=== PATIENT | male | born 1990 ===

== ENCOUNTER 2019-12-02 19:50 | Emergency (ER) | payer BC ==
[2019-12-02] MEDS ORDERED: Sodium Chloride 0.9% 1,000 ML IV ONE (20:15)
[2019-12-02] MEDS ORDERED: Meclizine 25 MG Tab PO ONE (20:31)
[2019-12-02] MEDS ORDERED: Ondansetron 4 MG/2 ML SDV IVPUSH ONE (20:31)
--- NOTE | 2019-12-02 20:35 | EDM.PDOC ---
ED HPI GENERAL MEDICAL PROBLEM - General Chief Complaint: General Stated Complaint: DIZZNESS Time Seen by Provider: 12/02/19 20:15 Source of Information: Reports: Patient History Limitations: Reports: No Limitations - History of Present Illness INITIAL COMMENTS - FREE TEXT/NARRATIVE: HISTORY AND PHYSICAL: History of present illness: Patient is a 29-year-old male who presents to the ED today with concern of dizziness for the last 4-hours. Patient states that he was sleeping and he works night shifts and had just woke up from sleeping. Patient states when he woke up he felt like his head was "airy". Patient states initially he had some nausea with the dizziness but this has subsided. Patient states that he still continues to feel slightly dizzy but it has improved over the past 4 hours. Patient denies any head injury or trauma. Patient states his father did from a heart attack at 52 years old and on his father's side he does have a history of heart attacks. Patient denies fever, chills, chest pain, shortness of breath, or cough. Denies headache, neck stiff ness, change in vision, syncope, or near syncope. Denies nausea, vomiting, abdominal pain, diarrhea, constipation, or dysuria. Has not noted any blood in urine or stool. Patient has been eating and drinking appropriately. Review of systems: As per history of present illness and below otherwise all systems reviewed and negative. Past medical history: As per history of present illness and as reviewed below otherwise noncontributory. Surgical history: As per history of present illness and as reviewed below otherwise noncontributory. Social history: See social history for further information Family history: As per history of present illness and as reviewed below otherwise noncontributory. Physical exam: General: Patient is alert, oriented, and in no acute distress. Patient sitting comfortably on exam table. HEENT: Atraumatic, normocephalic, pupils equal and reactive bilaterally, negative for conjunctival pallor or scleral icterus, mucous membranes moist, TMs normal bilaterally, throat clear, neck supple, nontender, trachea midline. No drooling or trismus noted. No meningeal signs. No hot potato voice noted. Lungs: Clear to auscultation, breath sounds equal bilaterally, chest nontender. Heart: S1S2, regular rate and rhythm without overt murmur Abdomen: Soft, nondistended, nontender. Negative for masses or hepatosplenomegaly. Negative for costovertebral tenderness. Pelvis: Stable nontender. Genitourinary: Deferred. Rectal: Deferred. Skin: Intact, warm, dry. No lesions or rashes noted. Extremities: Atraumatic, negative for cords or calf pain. Neurovascular unremarkable. Neuro: Awake, alert, oriented. Cranial nerves II through XII unremarkable. Cerebellum unremarkable. Motor and sensory unremarkable throughout. Exam nonfocal. Notes: EKG reviewed with Dr. Gonzalez and Dr. Gonzalez verbally involved in patient care. HEART Score 1. Low risk Patient expresses resolution of symptoms today in the ED. Discussed importance for follow-up with a primary care provider. Patient placed on expedited follow up with primary care for repeat labwork. Voices understanding and is agreeable to plan of care. Denies any further questions or concerns at this time. Diagnostics: CBC, CMP, UA, EKG, CXR, Trop, Head CT, lipase, orthostatic vitals, magnesium Therapeutics: NS, Zofran, Meclizine Prescription: Meclizine Impression: Dizziness, improved Hypokalemia Plan: 1. Take medication as prescribed. Repeat labwork with primary care provider as discussed. Return to ED as needed and as discussed. 2. Follow-up with a primary care provider as discussed. Definitive disposition and diagnosis as appropriate pending reevaluation and review of above. Generalized Pain Score (Numeric/FACES): 4 - Related Data Allergies Allergy/AdvReac Type Severity Reaction Status Date / Time No Known Allergies Allergy Verified 12/02/19 20:11 Home Meds: Home Meds Meclizine [Antivert] 25 mg PO BID PRN #10 tab 12/02/19 [Rx] Past Medical History - Past Health History Medical/Surgical History: Denies Medical/Surgical History - Infectious Disease History Infectious Disease History: Reports: None Social & Family History - Family History Family Medical History: Noncontributory - Tobacco Use Smoking Status *Q: Current Every Day Smoker Years of Tobacco use: 8 Packs/Tins Daily: 0.5 - Caffeine Use Caffeine Use: Reports: None - Recreational Drug Use Recreational Drug Use: No ED ROS GENERAL - Review of Systems Review Of Systems: Comprehensive ROS is negative, except as noted in HPI. ED EXAM, GENERAL - Physical Exam Exam: See Below (see dictation) Course - Vital Signs Last Recorded V/S: Last Vital Signs Temp 97.6 F 12/02/19 20:11 Pulse 84 12/02/19 20:11 Resp 17 12/02/19 20:11 BP 139/76 12/02/19 20:11 Pulse Ox 99 12/02/19 20:11 - Orders/Labs/Meds Orders: Active Orders 24 hr Category Date Time Status Communication Order [RC] STAT Care 12/02/19 21:33 Ordered EKG Documentation Completion [RC] STAT Care 12/02/19 20:08 Active Orthostatic Vital Signs [RC] ASDIRECTED Care 12/02/19 20:16 Active MAGNESIUM [CHEM] Stat Lab 12/02/19 21:28 Ordered UA RFX JOSÉ MIGUEL AND CULT IF INDIC [URIN] Stat Lab 12/02/19 20:15 Ordered Labs: Laboratory Tests 12/02/19 12/02/19 Range/Units 20:25 20:25 WBC 9.82 (4.0-11.0) K/uL RBC 4.58 (4.50-5.90) M/uL Hgb 13.8 (13.0-17.0) g/dL Hct 40.4 (38.0-50.0) % MCV 88.2 (80.0-98.0) fL MCH 30.1 (27.0-32.0) pg MCHC 34.2 (31.0-37.0) g/dL RDW Std Deviation 43.1 (28.0-62.0) fl RDW Coeff of Grant 13 (11.0-15.0) % Plt Count 322 (150-400) K/uL MPV 9.60 (7.40-12.00) fL Neut % (Auto) 62.5 (48.0-80.0) % Lymph % (Auto) 24.9 (16.0-40.0) % [place] % (Auto) 8.4 (0.0-15.0) % Eos % (Auto) 3.8 (0.0-7.0) % Baso % (Auto) 0.4 (0.0-1.5) % Neut # (Auto) 6.1 H (1.4-5.7) K/uL Lymph # (Auto) 2.5 H (0.6-2.4) K/uL Ulster # (Auto) 0.8 (0.0-0.8) K/uL Eos # (Auto) 0.4 (0.0-0.7) K/uL Baso # (Auto) 0.0 (0.0-0.1) K/uL Nucleated RBC % 0.0 /100WBC Nucleated RBCs # 0 K/uL Sodium 143 (136-148) mmol/L Potassium 2.9 L (3.5-5.1) mmol/L Chloride 107 (98-107) mmol/L Carbon Dioxide 24.8 (21.0-32.0) mmol/L BUN 11 (7.0-18.0) mg/dL Creatinine 1.2 (0.8-1.3) mg/dL Est Cr Clr Drug Dosing 106.56 mL/min Estimated GFR (MDRD) > 60.0 ml/min Glucose 93 (74-106) mg/dL Calcium 9.6 (8.5-10.1) mg/dL Total Bilirubin 0.9 (0.2-1.0) mg/dL AST 25 (15-37) IU/L ALT 27 (14-63) IU/L Alkaline Phosphatase 83 (46-116) U/L Troponin I < 0.050 (0.000-0.056) ng/mL Total Protein 7.0 (6.4-8.2) g/dL Albumin 3.7 (3.4-5.0) g/dL Globulin 3.3 (2.6-4.0) g/dL Albumin/Globulin Ratio 1.1 (0.9-1.6) Lipase 131 (73-393) U/L Meds: Medications Discontinued Medications Generic Name Dose Route Start Last Admin Trade Name Freq PRN Reason Stop Dose Admin Sodium Chloride 1,000 mls @ 999 mls/hr 12/02/19 20:15 12/02/19 20:25 Normal Saline IV 12/02/19 21:15 999 mls/hr BOLUS ONE Administration Meclizine HCl 25 mg 12/02/19 20:31 12/02/19 20:36 Antivert PO 12/02/19 20:32 25 mg ONETIME ONE Administration Ondansetron HCl 4 mg 12/02/19 20:31 12/02/19 20:36 Zofran IVPUSH 12/02/19 20:32 4 mg ONETIME ONE Administration Potassium Chloride 20 meq 12/02/19 20:58 12/02/19 21:19 Klor-Con M20 PO 12/02/19 20:59 20 meq ONETIME ONE Administration Potassium Chloride 20 meq 12/02/19 21:31 Klor-Con M20 PO 12/02/19 21:32 ONETIME ONE Departure - Departure Time of Disposition: 21:32 Disposition: Home, Self-Care 01 Clinical Impression: Dizziness, Hypokalemia - Discharge Information Prescriptions: Meclizine [Antivert] 25 mg PO BID PRN #10 tab PRN Reason: Dizziness Referrals: PCP,None [Primary Care Provider] - Forms: ED Department Discharge Additional Instructions: The following information is given to patients seen in the emergency department who are being discharged to home. This information is to outline your options for follow-up care. We provide all patients seen in our emergency department with a follow-up referral. The need for follow-up, as well as the timing and circumstances, are variable depending upon the specifics of your emergency department visit. If you don't have a primary care physician on staff, we will provide you with a referral. We always advise you to contact your personal physician following an emergency department visit to inform them of the circumstance of the visit and for follow-up with them and/or the need for any referrals to a consulting specialist. The emergency department will also refer you to a specialist when appropriate. This referral assures that you have the opportunity for follow-up care with a specialist. All of these measure are taken in an effort to provide you with optimal care, which includes your follow-up. Under all circumstances we always encourage you to contact your private physician who remains a resource for coordinating your care. When calling for follow-up care, please make the office aware that this follow-up is from your recent emergency room visit. If for any reason you are refused follow-up, please contact the [facility] Emergency Department at and asked to speak to the emergency department charge nurse. [facility] [address] [place] [id number] [address] [place] [address] 1. Take medication as prescribed. Repeat labwork with primary care provider as discussed. Return to ED as needed and as discussed. 2. Follow-up with a primary care provider as discussed. Sepsis Event Note - Evaluation Sepsis Screening Result: No Definite Risk - Focused Exam Vital Signs: Vital Signs Temp Pulse Resp BP Pulse Ox 12/02/19 20:11 97.6 F 84 17 139/76 99 Date Exam was Performed: 12/02/19 Time Exam was Performed: 21:37 - My Orders Last 24 Hours: My Active Orders 12/02/19 20:15 UA RFX JOSÉ MIGUEL AND CULT IF INDIC [URIN] Stat 12/02/19 20:16 Orthostatic Vital Signs [RC] ASDIRECTED 12/02/19 21:28 MAGNESIUM [CHEM] Stat 12/02/19 21:33 Communication Order [RC] STAT - Assessment/Plan Last 24 Hours: My Active Orders 12/02/19 20:15 UA RFX JOSÉ MIGUEL AND CULT IF INDIC [URIN] Stat 12/02/19 20:16 Orthostatic Vital Signs [RC] ASDIRECTED 12/02/19 21:28 MAGNESIUM [CHEM] Stat 12/02/19 21:33 Communication Order [RC] STAT
[2019-12-02 20:56] LABS: BLOOD UREA NITROGEN,BUN 11 mg/dL (7.0-18.0); CARBON DIOXIDE,CO2 24.8 mmol/L (21.0-32.0); CHLORIDE,CL 107 mmol/L (98-107); GLUCOSE RANDOM 93 mg/dL (74-106); LIPASE 131 U/L (73-393); POTASSIUM,K 2.9 mmol/L (3.5-5.1); SODIUM,NA 143 mmol/L (136-148)
[2019-12-02] MEDS ORDERED: Potassium Chloride 20 MEQ Tab.ER PO ONE ×2 (20:58→21:31)
--- NOTE | 2019-12-02 21:11 | CT ---
Head CT Technique: Multiple axial sections through the brain were obtained. Intravenous contrast was not utilized. Comparison: No prior intracranial imaging is available. Findings: Ventricles along with basal cisterns and sulci over the convexities are within normal limits for the patient's age. No abnormal parenchymal densities are seen. No evidence of intracranial hemorrhage. No midline shift or mass-effect is seen. Bone window settings were reviewed which shows no acute calvarial abnormality. There is mild mucosal thickening within the inferior left mastoid sinus. Other visualized mastoid sinuses are clear. Visualized paranasal sinuses show nothing acute. Impression: 1. Mild mucosal thickening within the inferior left mastoid sinus. If patient has no overlying symptoms this is likely incidental. 2. No additional abnormality is identified on noncontrast head CT exam. Diagnostic code #2 This report was dictated in [place] Standard Time
--- NOTE | 2019-12-02 21:13 | CR ---
Chest: PA view of the chest was obtained. Comparison: No prior chest x-ray. Heart size and mediastinum are within normal limits. Lungs are clear. No discrete bony abnormality is appreciated. Impression: 1. Nothing acute is appreciated on PA chest x-ray. Diagnostic code #1 This report was dictated in [place] Standard Time
== END 2019-12-02 22:11 | disposition home or self-care (01) ==
LOC: MW.ED 19:50
DX: E87.6 Hypokalemia (principal); R42 Dizziness and giddiness; F17.210 Nicotine dependence, cigarettes, uncomplicated
CPT/HCPCS: 36415; 70450; 71045; 80053; 83690; 83735; 84484; 85025; 96361; 96374; 99284; A9270; J2405; J7030; 93005